=== PATIENT | female | born 1990 | race Caucasian/White ===

== ENCOUNTER → 2016-10-30 | Outpatient (CLI) | payer BC, OTHER ==
[~2016-10-30] MED LIST: /MOM400 PO; ACET50TA PO; ANUS2.5C2 PR; COLA50CA3 PO; IBUP600T26 PO; IBUP80TA PO; No Historical Meds; VITAPRTA PO; ZOLO50TA OR
--- NOTE | 2016-10-31 02:44 | REP ---
Clinical: Acute right knee pain Technique: AP, lateral, bilateral oblique and sunrise views. Findings: The osseous structures and joint spaces are intact and normal. There is no evidence for acute fracture or dislocation. No joint effusion is appreciated. Surrounding soft tissues are unremarkable. No subcutaneous emphysema or radiodense foreign body. Impression: Normal examination. No acute fracture or dislocation. Signed by Waldo Barnes MD 10/31/2016 02:36 A
== END ==
LOC: M CLY 10:24
PROVIDERS: ATTEND Family Medicine
DX: M25.561 Pain in right knee (principal)

== ENCOUNTER → 2017-05-18 | Outpatient (REF) | payer OTHER ==
[2017-05-18 18:16] LABS: FREE T4 1.05 NG/DL (0.76-1.46)
== END ==
LOC: M LABDRAWC 16:19
DX: R94.6 Abnormal results of thyroid function studies (principal)
CPT/HCPCS: 84443

== ENCOUNTER → 2017-06-25 | Outpatient (REF) | payer OTHER | LOC: M SFHCCLAY 10:55 | DX: J03.90 Acute tonsillitis, unspecified (principal) ==

== ENCOUNTER → 2017-08-20 | Outpatient (REF) | payer OTHER | LOC: M LAB REF 17:47 | DX: Z12.4 Encounter for screening for malignant neoplasm of cervix (principal) ==

== ENCOUNTER → 2017-12-05 | Outpatient (CLI) | payer BC, OTHER | LOC: M RAD 15:48 | DX: N93.8 Other specified abnormal uterine and vaginal bleeding (principal) | CPT/HCPCS: 76856 ==

== ENCOUNTER → 2018-02-18 | Outpatient (REF) | payer OTHER ==
[2018-02-18 17:31] LABS: BASO % 0.4 % (0.0-1.0); EOS # 0.1 10^3/uL (0.0-0.50); EOS % 2.1 % (0.0-3.0); HEMATOCRIT 36.1 % (36.0-47.0); HEMOGLOBIN 12.5 g/dl (12.0-15.5); IMMATURE GRANULOCYTE % 0.4 % (0-3.0); LYMPH # 2.1 10^3/uL (1.5-6.5); LYMPH % 41.2 % (24.0-44.0); MEAN CORPUSCULAR HEMOGLOBIN 31.6 pg (27.0-33.0); MEAN CORPUSCULAR HGB CONC 34.6 g/dl (32.0-36.5); MEAN CORPUSCULAR VOLUME 91.4 fl (80.0-96.0); MONO # 0.3 10^3/uL (0.0-0.8); MONO % 5.8 % (0.0-5.0); NEUTROPHILS # 2.6 10^3/uL (1.8-7.7); NEUTROPHILS % 50.1 % (36.0-66.0); PLATELET COUNT, AUTOMATED 282 10^3/uL (150-450); RED BLOOD COUNT 3.95 10^6/uL (4.00-5.40); RED CELL DISTRIBUTION WIDTH 11.2 % (11.5-14.5); WHITE BLOOD COUNT 5.2 10^3/uL (4.0-10.0)
[2018-02-18 17:56] LABS: ALBUMIN/GLOBULIN RATIO 1.54 (1.00-1.93); ALKALINE PHOSPHATASE 50 U/L (45-117); ALT/SGPT 16 U/L (12-78); ANION GAP 7 MEQ/L (8-16); AST/SGOT 12 U/L (7-37); BILIRUBIN,TOTAL 0.4 MG/DL (0.2-1.0); BLOOD UREA NITROGEN 7 MG/DL (7-18); CARBON DIOXIDE LEVEL 27 MEQ/L (21-32); CHLORIDE LEVEL 108 MEQ/L (98-107); CREATININE FOR GFR 0.53 MG/DL (0.55-1.30); FREE T4 0.92 NG/DL (0.76-1.46); GLOMERULAR FILTRATION RATE > 60.0 (>60); GLUCOSE, FASTING 98 MG/DL (70-100); POTASSIUM SERUM 4.3 MEQ/L (3.5-5.1); RHEUMATOID FACTOR QUANT < 10.0 IU/ML (<15.0); SODIUM LEVEL 142 MEQ/L (136-145); THYROID STIMULATING HORMONE 0.335 uIU/ML (0.358-3.740); TOTAL PROTEIN 6.6 GM/DL (6.4-8.2)
[2018-02-18 18:12] LABS: ERYTHROCYTE SEDIMENTATION RATE 13 mm/hr (0-20)
== END ==
LOC: M SFHCCLAY 11:31
DX: M79.10 Myalgia, unspecified site (principal); R53.83 Other fatigue

== ENCOUNTER → 2018-04-05 | Outpatient (REF) | payer OTHER ==
[2018-04-05 16:45] LABS: TOTAL 25(OH) VITAMIN D 28.2 NG/ML (30.0-100.0)
== END ==
LOC: M SFHCCLAY 10:44
DX: F32.9 Major depressive disorder, single episode, unspecified (principal)

== ENCOUNTER → 2019-01-02 | Outpatient (REF) | payer OTHER ==
[~2019-01-02] MED LIST changes: -/MOM400 PO; -ACET50TA PO; +MAPA500T17 PO; +MILK10SU PO; +ZOFR4TAB14 PO
== END ==
LOC: M SFHCCLAY 11:30
PROVIDERS: ATTEND Nurse Practitioner Family
DX: R10.30 Lower abdominal pain, unspecified (principal)

== ENCOUNTER → 2019-01-17 | Outpatient (REF) | payer OTHER ==
[2019-01-18 21:00] LABS: CHLAMYDIA DNA AMPLIFICATION NEGATIVE (NEGATIVE); GC DNA AMPLIFICATION NEGATIVE (NEGATIVE)
== END ==
LOC: M WUC 14:37
PROVIDERS: ATTEND Physician Assistant
DX: R10.30 Lower abdominal pain, unspecified (principal)

== ENCOUNTER → 2019-02-20 | Outpatient (CLI) | payer OTHER ==
[2019-02-20 17:09] LABS: BASO % 0.4 % (0.0-1.0); EOS # 0.1 10^3/uL (0.0-0.5); EOS % 1.3 % (0.0-3.0); HEMATOCRIT 37.3 % (36.0-47.0); HEMOGLOBIN 13.1 g/dl (12.0-15.5); LYMPH # 2.5 10^3/uL (1.5-5.0); MEAN CORPUSCULAR HEMOGLOBIN 33.2 pg (27.0-33.0); MEAN CORPUSCULAR HGB CONC 35.1 g/dl (32.0-36.5); MEAN CORPUSCULAR VOLUME 94.4 fl (80.0-96.0); MONO # 0.4 10^3/uL (0.0-0.8); MONO % 5.6 % (0.0-5.0); NEUTROPHILS # 4.8 10^3/uL (1.5-8.5); NEUTROPHILS % 60.3 % (36.0-66.0); PLATELET COUNT, AUTOMATED 295 10^3/uL (150-450); RED BLOOD COUNT 3.95 10^6/uL (4.00-5.40); WHITE BLOOD COUNT 7.9 10^3/uL (4.0-10.0)
[2019-02-20 18:39] LABS: CHLAMYDIA DNA AMPLIFICATION NEGATIVE (NEGATIVE); GC DNA AMPLIFICATION NEGATIVE (NEGATIVE)
[2019-02-21 11:25] LABS: HEPATITIS C VIRUS ABY INDEX 0.1 INDEX (<0.8); HIV 1&2 SCREEN CENTAUR NEGATIVE (NEGATIVE); RUBELLA IgG QUALITATIVE EQUIVOCAL (IMMUNE)
== END ==
LOC: M SMT 15:05
PROVIDERS: ATTEND Advanced Practice Midwife
DX: O99.211 Obesity complicating pregnancy, first trimester (principal); E66.9 Obesity, unspecified

== ENCOUNTER 2019-04-05 08:24 | Emergency (ER) | payer BC, OTHER ==
[~2019-04-05] VITALS: Ht 167.6 cm; Wt 89.2 kg
[2019-04-05] MEDS ORDERED: NS 1,000 ML IV ONE (09:00)
[2019-04-05] MEDS ORDERED: ACETAMINOPHEN 500 MG TAB PO ONE (09:00)
[2019-04-05 09:15] LABS: HEMATOCRIT 37.3 % (36.0-47.0); MEAN CORPUSCULAR HEMOGLOBIN 32.3 pg (27.0-33.0); MEAN CORPUSCULAR HGB CONC 34.9 g/dl (32.0-36.5); MEAN CORPUSCULAR VOLUME 92.8 fl (80.0-96.0); PLATELET COUNT, AUTOMATED 292 10^3/uL (150-450); RED BLOOD COUNT 4.02 10^6/uL (4.00-5.40); WHITE BLOOD COUNT 13.8 10^3/uL (4.0-10.0)
[2019-04-05 09:28] LABS: APPEARANCE, URINE CLEAR (CLEAR); BACTERIA, URINE AUTO 1+ (NEGATIVE); BILIRUBIN, URINE AUTO NEGATIVE (NEGATIVE); BLOOD, URINE BLOOD NEGATIVE (NEGATIVE); COLOR, URINE YELLOW (YELLOW); GLUCOSE, URINE (UA) AUTO NEGATIVE (NEGATIVE); KETONE, URINE AUTO TRACE mg/dL (NEGATIVE); LEUKOCYTE ESTERASE, URINE AUTO TRACE (NEGATIVE); MUCUS, URINE SMALL (NEGATIVE); NITRITE, URINE AUTO NEGATIVE (NEGATIVE); PROTEIN, URINE AUTO NEGATIVE (NEGATIVE); RBC, URINE AUTO 4 /HPF (0-3); SPECIFIC GRAVITY URINE AUTO 1.023 (1.002-1.035); SQUAMOUS EPITHELIAL CELL UR AU 2 /HPF (0-6); WBC, URINE AUTO 1 /HPF (0-3)
--- NOTE | 2019-04-05 09:50 | REP ---
Urinary tract sonogram: History: The patient bilateral flank pain. Question stone. Comparison: No comparison. Findings: Scanning at the level of the urinary bladder shows no abnormality. Urinary bladder was empty at the time of scanning. Renal cortical echogenicity pattern is normal bilaterally and contours are smooth. There is no evidence of hydronephrosis, cyst, mass, or calculus in either kidney. heart rate is recorded during the scan at 168 beats per minute. The right kidney measures 13.8 x 5.7 x 3.7 cm. Left renal dimensions are 13.9 x 4.3 x 4.6 cm. Impression: Normal urinary tract sonography. Electronically Signed by Luigi Brewer MD 04/05/2019 09:42 A
[2019-04-05 09:56] LABS: HCG, SERUM QUALITATIVE POSITIVE (NEGATIVE)
[2019-04-05 10:02] LABS: BLOOD UREA NITROGEN 6 MG/DL (7-18); CALCIUM LEVEL 8.7 MG/DL (8.5-10.1); CARBON DIOXIDE LEVEL 23 MEQ/L (21-32); CHLORIDE LEVEL 109 MEQ/L (98-107); CREATININE FOR GFR 0.51 MG/DL (0.55-1.30); GLOMERULAR FILTRATION RATE > 60.0 (>60); GLUCOSE, FASTING 109 MG/DL (70-100); POTASSIUM SERUM 3.8 MEQ/L (3.5-5.1); SODIUM LEVEL 139 MEQ/L (136-145)
[2019-04-05 10:47] LABS: HCG, SERUM QUANTITATIVE 81836 MIU/ML
[2019-04-05 12:30] LABS: CHLAMYDIA DNA AMPLIFICATION NEGATIVE (NEGATIVE); GC DNA AMPLIFICATION NEGATIVE (NEGATIVE)
[2019-04-05 13:15] VITALS: BP 102/55
== END 2019-04-05 13:21 | disposition home or self-care (01) ==
LOC: M ED 08:24
DX: O21.9 Vomiting of pregnancy, unspecified (principal); Z3A.12 12 weeks gestation of pregnancy; Z87.59 Personal history of other complications of pregnancy, childbirth and the puerperium; O99.341 Other mental disorders complicating pregnancy, first trimester; Z87.891 Personal history of nicotine dependence

== ENCOUNTER → 2019-04-15 | Outpatient (CLI) | payer BC, OTHER | LOC: M LAB 08:43 | PROVIDERS: ATTEND Advanced Practice Midwife | DX: Z36.89 Encounter for other specified antenatal screening (principal) ==

== ENCOUNTER → 2019-05-28 | Outpatient (CLI) | payer BC, OTHER ==
--- NOTE | 2019-05-29 11:25 | REP ---
Clinical: Anatomical evaluation. Comparison: None . Findings: Examination demonstrates a single live intrauterine in cephalic presentation. motion is identified by technologist. Placenta is noted the posterior/fundal and grade I without evidence for placenta previa or abruption. Amniotic fluid volume is normal. Cervix measures 5.3 cm in length and appears closed. No evidence for nuchal cord. Gestational age by LMP 19 weeks 6 days with DENISSE 10/16/2019 . Gestational age by current measurements 21 weeks 1 day with DENISSE 10/07/2019 . FHR equals 142 beats per minute. BPD 5.0 cm 21 weeks 1 day HC 19.1 cm 21 weeks 2 days AC 16.0 cm 21 weeks 0 days FL 3.5 cm 20 weeks 6 days HL 3.3 cm 21 weeks 2 days HC/AC ratio 1.19 Estimated weight 394 grams ( 42nd percentile). Anatomical assessment demonstrates normal structures including cranium, choroid plexus, cavum, cerebellum/posterior fossa, lungs, four-chamber heart/ventricular outflow tracts, diaphragm, stomach, cord insertion/three-vessel cord, kidneys/bladder, spine, and extremities. Limited evaluation of the facial profile. Echogenic focus in the left cardiac ventricle consistent with prominent chordae tendineae Impression: 1. Single live intrauterine in cephalic presentation demonstrating appropriate interval growth. 2. Anatomical limitations as noted above may warrant followup. Electronically Signed by Waldo Barnes MD 05/29/2019 06:27 A
== END ==
LOC: M RAD 09:40
PROVIDERS: ATTEND Advanced Practice Midwife
DX: Z34.82 Encounter for supervision of other normal pregnancy, second trimester (principal); Z36.89 Encounter for other specified antenatal screening; Z3A.21 21 weeks gestation of pregnancy

== ENCOUNTER → 2019-06-20 | Outpatient (CLI) | payer BC | LOC: M PLALAB 11:22 | PROVIDERS: ATTEND Advanced Practice Midwife | DX: Z13.79 Encounter for other screening for genetic and chromosomal anomalies (principal) ==

== ENCOUNTER 2019-06-25 13:20 | Outpatient (CLI) | payer BC, OTHER ==
[~2019-06-25] VITALS: Ht 167.6 cm; Wt 96.3 kg
[2019-06-25] MEDS ORDERED: PRENTAB9 PO (13:41)
[2019-06-25] MEDS ORDERED: TUMS500C PO (13:42)
[2019-06-25 13:50] VITALS: BP 122/58
--- NOTE | 2019-06-25 14:45 | IPNPDOC ---
Text Note Date of Service The patient was seen on 06/25/19. NOTE Subjective: Patient is a 29-year-old at 23.6 weeks gestation based on first trimester ultrasound with an DENISSE of 10/16/2019. Patient established care in her first trimester. Her has been complicated by anxiety, depression and obesity. She is not taking any medications for her anxiety and depression currently. The patient has also complained of continual pubic bone/tailbone pain and a physical therapy referral has been placed this week. She was sent from [place] [facility] c/o RLQ abdominal pain since 0730 this morning. They reported that she appeared to have cervicitis and was dilated per visual inspection. Pain is currently dull and 5/10 in intensity, but periods of intensity where pain is 9/10 and intermittently stabbing. Denies contractions. Patient denies pain with urination or vomiting. She was treated for nausea prior to arrival to labor and delivery and currently denies this. She reports positive movement. Denies leakage of fluid, but reports white vaginal discharge. Allergies: None Medications: vitamin daily Medical history: Obesity, anxiety, depression, genital warts, left ovarian cyst, tympanic membrane perforation Surgical history: None Family history: Ovarian cancer, uterine cancer, HTN, pancreatic cancer Social history: Patient is a former smoker, denies drug use or alcohol abuse. Objective: VS and labs: see below. Alert and oriented. Cervix visually closed per SSE. Normal discharge noted, cervix is thick, multiparous and does not appear to have cervicitis. Wet prep collected and negative for bacterial vaginosis, some yeast buds noted, whiff test negative with a pH of 4.5. Vaginal culture collected. Abdomen is gravid and soft, RLQ mildly tender to palpation. No CVA tenderness. FHR 150 with 1 contraction noted. Ultrasound ordered for pelvic and renal and the radiologist called with both normal reports as the did not finish writing the reports. There was slight hydronephrosis of the right kidney that was noted, which is normal in . Patient able to keep peanut butter and crackers down without nausea. Assessment: Intrauterine at 23 weeks, RLQ pain, not in labor Plan: Abdominal/renal ultrasound ordered, urinalysis collected, and vaginal culture collected. She was given a dose of Percocet for pain, which she states reduced her pain to a 1/10. Encouraged adequate PO intake. Reviewed danger signs of labor, abruption and premature rupture of membranes. Reviewed kick count. Patient verbalized understanding. VS,Fishbone, I+O VS, Fishbone, I+O Vital Signs Date Time Temp Pulse Resp B/P (MAP) Pulse Ox O2 Delivery O2 Flow Rate FiO2 06/25/19 13:50 98.6 78 16 122/58 (79) Item Value Date Time Urine Color STRAW 06/25/19 1457 Urine Appearance CLEAR 06/25/19 1457 Urine pH 7.0 UNITS 06/25/19 1457 Urine Specific [place] 1.002 06/25/19 1457 Urine Protein NEGATIVE mg/dL 06/25/19 1457 Urine Ketones (Auto) 1+ mg/dL H 06/25/19 1457 Urine Glucose (Auto)(UA) NEGATIVE mg/dL 06/25/19 1457 Urine Blood 1+ H 06/25/19 1457 Urine Nitrite NEGATIVE 06/25/19 1457 Urine Bilirubin NEGATIVE 06/25/19 1457 Urine Urobilinogen 0.2 mg/dL 06/25/19 1457 Urine Leukocyte Esterase (Auto) NEGATIVE 06/25/19 1457 Urine WBC (Auto) 0 /HPF 06/25/19 1457 Urine RBC (Auto) 0 /HPF 06/25/19 1457 Urine Hyaline Casts (Auto) 0 /LPF 06/25/19 1457 Urine Bacteria (Auto) 1+ H 06/25/19 1457 Urine Squamous Epithelial Cells 0 /HPF 06/25/19 1457 MANUEL HANKS CNM Jun 25, 2019 14:45
[2019-06-25 15:15] LABS: APPEARANCE, URINE CLEAR (CLEAR); BACTERIA, URINE AUTO 1+ (NEGATIVE); BILIRUBIN, URINE AUTO NEGATIVE (NEGATIVE); BLOOD, URINE BLOOD 1+ (NEGATIVE); COLOR, URINE STRAW (YELLOW); GLUCOSE, URINE (UA) AUTO NEGATIVE (NEGATIVE); KETONE, URINE AUTO 1+ mg/dL (NEGATIVE); LEUKOCYTE ESTERASE, URINE AUTO NEGATIVE (NEGATIVE); NITRITE, URINE AUTO NEGATIVE (NEGATIVE); PROTEIN, URINE AUTO NEGATIVE (NEGATIVE); RBC, URINE AUTO 0 /HPF (0-3); SPECIFIC GRAVITY URINE AUTO 1.002 (1.002-1.035); SQUAMOUS EPITHELIAL CELL UR AU 0 /HPF (0-6); UROBILINOGEN, URINE AUTO 0.2 mg/dL (0.0-2.0); WBC, URINE AUTO 0 /HPF (0-3)
[2019-06-25] MEDS ORDERED: PERCOCET 5MG/325MG TAB PO ONE (16:00)
[2019-06-25 16:17] VITALS: BP 112/58
--- NOTE | 2019-06-25 22:53 | REP ---
Right lower quadrant sonography: History: Acute right lower quadrant pain. 20 weeks gestation. Findings: Scanning through the right lower quadrant shows peristalsing bowel loops. Normal appearing right ovary is seen measuring 2.1 x 3.2 x 2.5 cm. Doppler flow is present in the right ovary. Resistive index 0.66. No free fluid is seen. The appendix is not directly visualized. No evidence of adenopathy or rebound tenderness with probe pressure. Impression: Appendix not directly visualized. Normal right ovary seen. No other abnormality. Electronically Signed by Luigi Brewer MD 06/26/2019 08:06 A
--- NOTE | 2019-06-25 22:54 | REP ---
RENAL ULTRASOUND: Real-time sonographic evaluation of the kidneys performed. The kidneys are normal in size and echotexture, right kidney measuring 12.2 x 6.5 x 5.4 cm and left kidney 12.4 x 5.3 x 5.4 cm. There is moderate right hydronephrosis. There is no left hydronephrosis. No definite renal stones are seen. Patient is 20 weeks reportedly. The heart rate is 143 beats per minute. Urinary bladder is not well distended. IMPRESSION: Moderate right hydronephrosis. Electronically Signed by Victor Hugo Gardner MD 06/26/2019 11:09 A
== END 2019-06-25 16:50 | disposition home or self-care (01) ==
LOC: M LDO 13:20
PROVIDERS: ATTEND Advanced Practice Midwife
DX: O26.892 Other specified pregnancy related conditions, second trimester (principal); R10.31 Right lower quadrant pain; O99.342 Other mental disorders complicating pregnancy, second trimester; F32.9 Major depressive disorder, single episode, unspecified; F41.9 Anxiety disorder, unspecified; O99.212 Obesity complicating pregnancy, second trimester; E66.9 Obesity, unspecified; Z3A.23 23 weeks gestation of pregnancy; Z87.891 Personal history of nicotine dependence
CPT/HCPCS: 76775; 76857; 81001; 87070; G0378; G0463

== ENCOUNTER → 2019-07-10 | Outpatient (CLI) | payer BC, OTHER ==
[~2019-07-10] MED LIST changes: +PRENTAB9 PO; +TUMS500C PO
--- NOTE | 2019-07-10 11:03 | REP ---
Clinical: Anatomical evaluation. Comparison: 05/28/2019 . Findings: Examination demonstrates a single live intrauterine in cephalic presentation. motion is identified by technologist. Placenta is noted the posterior and grade on the without evidence for placenta previa or abruption. Amniotic fluid volume is normal. Cervix measures 4.4 cm in length and appears closed. No evidence for nuchal cord. Gestational age by first US 27 weeks 2 days with DENISSE 10/07/2019 . Gestational age by current measurements 26 weeks 4 days with DENISSE 10/12/2019 . FHR equals 138 beats per minute. Estimated weight 951 grams ( 24th percentile). Anatomical assessment demonstrates normal structures including cranium, facial features, lungs, four-chamber heart, diaphragm, stomach, cord insertion/three-vessel cord, kidneys/bladder, and spine. Echogenic focus in the left cardiac ventricle is again noted. Impression: 1. Single live intrauterine in cephalic presentation demonstrating appropriate interval growth. 2. In conjunction with prior examination anatomical assessment is essentially complete and relatively normal. The echogenic focus in the left cardiac ventricle is again identified.
== END ==
LOC: M WHC 09:47
PROVIDERS: ATTEND Advanced Practice Midwife
DX: Z34.82 Encounter for supervision of other normal pregnancy, second trimester (principal); Z36.2 Encounter for other antenatal screening follow-up; Z3A.27 27 weeks gestation of pregnancy

== ENCOUNTER → 2019-07-23 | Outpatient (REF) | payer OTHER ==
[2019-07-23 13:50] LABS: HEMATOCRIT 33.1 % (36.0-47.0); HEMOGLOBIN 11.3 g/dl (12.0-15.5); MEAN CORPUSCULAR HEMOGLOBIN 32.8 pg (27.0-33.0); MEAN CORPUSCULAR HGB CONC 34.1 g/dl (32.0-36.5); MEAN CORPUSCULAR VOLUME 95.9 fl (80.0-96.0); PLATELET COUNT, AUTOMATED 322 10^3/uL (150-450); RED BLOOD COUNT 3.45 10^6/uL (4.00-5.40); WHITE BLOOD COUNT 13.5 10^3/uL (4.0-10.0)
== END ==
LOC: M PLALAB 10:04
PROVIDERS: ATTEND Advanced Practice Midwife
DX: Z36.89 Encounter for other specified antenatal screening (principal)

== ENCOUNTER → 2019-07-23 | Outpatient (REF) | payer OTHER | LOC: M LABDRAWC 16:18 | PROVIDERS: ATTEND Advanced Practice Midwife | DX: Z36.89 Encounter for other specified antenatal screening (principal) | CPT/HCPCS: 36415; 86850; 86901; J2790 ==

== ENCOUNTER → 2019-09-17 | Outpatient (REF) | payer OTHER | LOC: M PLALAB 12:08 | PROVIDERS: ATTEND Advanced Practice Midwife | DX: O99.333 Smoking (tobacco) complicating pregnancy, third trimester (principal) ==

== ENCOUNTER 2019-09-23 05:29 | Inpatient (IN) | payer BC, OTHER ==
[~2019-09-23] VITALS: Ht 167.6 cm; Wt 104.5 kg
[2019-09-23] VITALS (8 sets, daily range): BP systolic 109–125; BP diastolic 65–76
[2019-09-23] MEDS ORDERED: PENICILLIN G POTASSIUM IV 5 MU in D5W MINI-BAG PLUS 100 ML IV STA ×2 (06:08→06:34)
[2019-09-23] MEDS ORDERED: LR 1,000 ML IV SCH (06:08)
[2019-09-23] MEDS ORDERED: LACTATED RINGER'S 1000 ML IV STA (06:08)
[2019-09-23] MEDS ORDERED: BETAMETHASONE SOLUSPAN 6MG/ML 5ML VIAL (J0702 PER 3MG) IM SCH (06:15)
--- NOTE | 2019-09-23 06:18 | HPEPDOC ---
Obstetrical History & Physical General Date of Admission 09/23/19 Primary Care Physician: MANUEL HANKS CNM History of Present Illness Patient is a 29-year-old female who is a with an DENISSE of 10/16/19 based off of her first trimester ultrasound. She initiated care in her first trimester with [facility]. Her has been complicated by obesity and anxiety and depression. She presents to L&D after she reports she spontaneously ruptured to a large amount of clear fluid at 0430. She denies leaking of fluid or vaginal bleeding. She reports painful contractions. Chief Complaint: Active Labor, Rupture of membranes Information Provided By: Patient Age: 29 : 4 Term: 2 Pre-term: 0 Abortions: 1 Livin Care Care: Good Care Dating Final EDC: October 16, 2019 Final EDC by: 1st trimester (US) EGA at Admission: 36.5 Antepartum Course Diagnos(e)s PROM and active labor Height (inches): 66 Pre- weight (lbs.): 198 Admission Weight (lbs.): 227 Change in Weight (lbs.): 19 Past Medical History Past Obstetrical History #1: Past Obstetrical History: Primgravida Gestation: 40 Type of Delivery: Spontaneous Vaginal Del. (06/2013) Sex of Infant: Male (9 lbs 11 oz) Complications: No Past Obstetrical History #2: Past Obstetrical History: Multigravida Gestation: 40 Type of Delivery: Spontaneous Vaginal Del. (02/2015) Sex of : Female (80lbs 10 oz.) Complications: No CAN WORKER History: Spontaneous (11/2010), Human papillomavirus(HPV) Past Medical History Medical History obesity Surgical History: [place] teeth, Other (cystectomy left ovarian cyst.) Family History Significant Family History: Cancer, Hypertension Social History Marital Status: Family situation: Spouse/partner home Psychosocial History: Anxiety, Depression * Smoker: current smoker Alcohol: Denies Drugs: denies Abuse Violence Screening Have you been hit/kicked/slapp: No Have you been sexually assault: No Imunizations Tdap status: current Allergies Coded Allergies: No Known Allergies (Unverified , 04/05/19) Medications Scheduled No.137/Iron/Folic Acd ( Vitamin Tablet) 1 Each Tablet, 2 TAB PO DAILY Scheduled PRN Calcium Carbonate (Tums) 200 Mg Tab.chew, 2 TAB PO QID PRN for ABDOMINAL PAIN Physical Examination Physical Examination GENERAL: Alert and oriented times three. BREAST: . ABDOMEN: Gravid and non-tender to touch. FETUS: Is vertex (VTX) by sterile vaginal examination (SVE), fetus is vertex (VTX) by Reji. PERINEUM: SSE: moderate amount of clear fluid noted in the vaginal canal. + nitrazine. HEART RATE: Regular rate and rhythm. LUNGS: Clear to auscultation (CTA). EXTREMITIES: No edema. No clonus. Deep tendon reflexes (DTRs) + 2. Laboratory Data Urine Culture: No Growth Pertinent Laboratoy Data Blood Type: O- HIV: Negative Hepatitis B: Negative Hepatitis C: Negative Rapid Plasma Reagin: Nonreactive Rubella: Nonreactive Chlamydia/Gonorrhea: Negative Group B Streptococcus: Positive Glucose Tolerance Test: 96 Steroid Therapy Steroid Therapy: Yes Date #1: September 23, 2019 Vaginal Examination Dilation: 4 cm (4-5 cm) Effacement: 90% Station: -2 Cervical Consistency: Soft Cervical Position: Anterior Presentation: Cephalic presentation Position: Vertex (occiput) Assessment Heart Rate (FHR): 160 Variability: Moderate Accelerations: Positive Decelerations: None Tocometer Contractions: Yes Frequency: regular, every 1-3 min. Multi-drug resistant Organism: No history of MDRO Assessment/Plan Assessment IUP at 36.5 weeks gestation PROM active labor GBS positive Category I FHR tracing. Plan Admit to L&D. OOB ad cortney. Diet:clears. Group B Streptococcus (GBS) positive. Start antibiotic prophylaxis. Labs and intravenous (IV) per unit protocol. Anesthesia consult per patient request. Lactated Ringers (LR): Bolus 800 mL, then at 125 mL/hr. Betamethasone IM injection ordered due to labor status. Anticipate cervical change and spontaneous vaginal delivery. C-S as appropriate. MANUEL HANKS CNM September 23, 2019 06:18
[2019-09-23 06:40] LABS: HEMATOCRIT 33.4 % (36.0-47.0); HEMOGLOBIN 11.3 g/dl (12.0-15.5); MEAN CORPUSCULAR HGB CONC 33.8 g/dl (32.0-36.5); MEAN CORPUSCULAR VOLUME 91.8 fl (80.0-96.0); PLATELET COUNT, AUTOMATED 273 10^3/uL (150-450); RED BLOOD COUNT 3.64 10^6/uL (4.00-5.40); WHITE BLOOD COUNT 9.5 10^3/uL (4.0-10.0)
[2019-09-23] MEDS ORDERED: FENTANYL 2MCG/ML ROPIVACAINE 0.2% IN 0.9% NACL 100ML IVBAG As Ordered ONE (06:59)
[2019-09-23] MEDS ORDERED: OXYTOCIN 30 UNITS IN 0.9% NaCl 500ML IV BAG (J2590) As Ordered ONE (07:10)
[2019-09-23] MEDS ORDERED: OXYTOCIN DRIP 30 UNITS in IV 1 EA IV SCH (07:42)
[2019-09-23] MEDS ORDERED: IBUPROFEN 800 MG TAB PO PRN (07:45)
[2019-09-23] MEDS ORDERED: DIBUCAINE 1% OINTMENT 30GM TOP PRN (07:45)
[2019-09-23] MEDS ORDERED: IBUPROFEN 600 MG TAB PO PRN (07:45)
[2019-09-23] MEDS ORDERED: RHOGAM 300 MCG (1500 IU) INJ (J2790) IM SCH (07:45)
[2019-09-23] MEDS ORDERED: ACETAMINOPHEN TAB 650MG DOSE (2X325MG) PO PRN (07:45)
[2019-09-23] MEDS ORDERED: DOCUSATE SODIUM 100 MG CAP PO PRN (07:45)
[2019-09-23] MEDS ORDERED: METHYLERGONOVINE MALEATE 0.2 MG TAB PO PRN (07:45)
[2019-09-23] MEDS ORDERED: MEASLES,MUMPS,RUBELLA VACCINE INJ (MMR-II) (90707) SC SCH (07:45)
--- NOTE | 2019-09-23 08:11 | DNPDOC ---
[facility] Delivery Note Delivery Note DATE OF DELIVERY: 09/23/19 at 0719 PREDELIVERY DIAGNOSIS: 36-5/7 weeks' gestation and labor. POST DELIVERY DIAGNOSIS: Delivered. PROCEDURE: Spontaneous vaginal delivery. IMAGING NURSE: Manuel Pro CNM, MYRIAM ANESTHESIA: none. ESTIMATED BLOOD LOSS: 250 mL. FINDINGS: 8 pounds 1 ounce; 3670 grams; female , Score 9/9, PROM with delivery, precipitous delivery. DELIVERY SUMMARY: Patient is a 29-year-old female who is now a who presented to L&D after she spontaneously ruptured at home at 0430 to a large amount of clear fluid. She progressed to fully dilated at 0717 and pushed to a living female in the APRIL position with restitution to ROT. The anterior shoulder delivered with ease and the corpus immediately followed at 0719. The baby was placed on the maternal abdomen active and crying. The cord was clamped x2 after it stopped pulsating and was cut by the FOB. A 3-vessel cord was noted. The placenta delivered spontaneously and intact at 0724. Uterine hemostasis was achieved via rapid infusion of IV Pitocin and fundal massage. The vagina, cervix, and perineum was inspected and found to be intact. Both mom and baby are in stable condition. She plans to breastfeed. They are naming her Jeanie. All counts of instruments and sponges are correct. MANUEL PRO CNM September 23, 2019 08:11
[2019-09-23] MEDS ORDERED: **PENDING PCN ENTRY XX SCH (09:00)
[2019-09-23] MEDS: PRENATAL VITAMINS CHEWABLE TABLET PO SCH (09:00)
[2019-09-23] MEDS ORDERED: PENICILLIN G POTASSIUM IV 2.5 MU in IV 1 EA IV SCH ×2 (10:15→10:30)
[2019-09-23] MEDS: ACETAMINOPHEN 500 MG TAB PO PRN (12:10)
[2019-09-24] MEDS: ACETAMINOPHEN 500 MG TAB PO PRN (04:04)
[2019-09-24 06:00] VITALS: BP 107/60
[2019-09-24] MEDS ORDERED: ACET-683 PO (09:31)
[2019-09-24] MEDS: PRENATAL VITAMINS CHEWABLE TABLET PO SCH (11:04)
[2019-09-24] MEDS ORDERED: FLUoxetine 10 MG CAP PO SCH (16:00)
== END 2019-09-24 17:41 | disposition home or self-care (01) | DRG 560 ==
LOC: M LDO 05:29 → M LDI 06:11 → M OBS 10:13
PROVIDERS: ADMIT Advanced Practice Midwife; ATTEND Advanced Practice Midwife
PROC: 10E0XZZ Delivery of Products of Conception, External Approach (ICD-10-PCS; principal; 2019-09-23)
DX: O60.14X0 Preterm labor third trimester with preterm delivery third trimester, not applicable or unspecified (principal); E66.9 Obesity, unspecified; F32.9 Major depressive disorder, single episode, unspecified; O99.344 Other mental disorders complicating childbirth; Z3A.36 36 weeks gestation of pregnancy; F41.9 Anxiety disorder, unspecified; Z37.0 Single live birth; O62.3 Precipitate labor; O99.214 Obesity complicating childbirth

== ENCOUNTER → 2019-12-07 | Outpatient (CLI) | payer BC, OTHER ==
[~2019-12-07] MED LIST changes: +ACET-683 PO; +ESCI20TA PO
== END ==
LOC: M LABSMTC 09:39
PROVIDERS: ATTEND Anesthesiology
DX: Z01.818 Encounter for other preprocedural examination (principal); Z11.59 Encounter for screening for other viral diseases; Z20.828 Contact with and (suspected) exposure to other viral communicable diseases
CPT/HCPCS: C9803; U0003

== ENCOUNTER → 2020-03-04 | Outpatient (REF) | payer OTHER ==
[2020-03-04 17:50] LABS: HEMATOCRIT 40.2 % (36.0-47.0); HEMOGLOBIN 13.5 g/dl (12.0-15.5); MEAN CORPUSCULAR HEMOGLOBIN 30.8 pg (27.0-33.0); MEAN CORPUSCULAR HGB CONC 33.6 g/dl (32.0-36.5); MEAN CORPUSCULAR VOLUME 91.6 fl (80.0-96.0); PLATELET COUNT, AUTOMATED 362 10^3/uL (150-450); RED BLOOD COUNT 4.39 10^6/uL (4.00-5.40); WHITE BLOOD COUNT 7.9 10^3/uL (4.0-10.0)
[2020-03-04 18:26] LABS: FREE T4 0.8 NG/DL (0.76-1.46); THYROID STIMULATING HORMONE 0.547 uIU/ML (0.358-3.740)
[2020-03-04 18:28] LABS: FOLATE 22.7 NG/ML (>5.4)
== END ==
LOC: M PLALAB 15:34
PROVIDERS: ATTEND Advanced Practice Midwife
DX: F41.8 Other specified anxiety disorders (principal); L65.9 Nonscarring hair loss, unspecified

== ENCOUNTER → 2020-08-24 | Outpatient (CLI) | payer BC, OTHER ==
[~2020-08-24] MED LIST changes: +E-Z-GAS II EFFERVESCENT PACKET (SODIUM BICARB./CITRIC ACID/SIMETHICONE) As Ordered ONE; +E-Z-HD 98% w/w 340GM SUSP BTL As Ordered ONE; +E-Z-PAQUE 96% w/w SUSP 176GM BTL As Ordered ONE; -ESCI20TA PO; +ESCI20TA16 PO
--- NOTE | 2020-08-24 18:44 | REP ---
INDICATION: DYSPHAGIA. COMPARISON: None. TECHNIQUE: This procedure was performed under the direct supervision of Dr. Gardner. Images were reviewed with Dr. Gardner. Liquid barium and gas producing granules were given in the erect position as well as liquid barium in the prone oblique positions in order to perform a double contrast esophagram examination. 0.7 minutes of fluoro time was utilized for this procedure. FINDINGS: A single view PA chest x-ray is submitted as a electrodynamicist film. The superior mediastinal structures are midline. The heart size is within normal limits. The lungs are clear. The oral and pharyngeal stages of deglutition are unremarkable. Esophageal transport is prompt and efficient and there is no esophagitis, stricture or mucosal ring. There is a sliding-type hiatal hernia.There is gastroesophageal reflux demonstrated to above the level of the ninfa. IMPRESSION: There is a sliding-type hiatal hernia. There is gastroesophageal reflux demonstrated to above the level of the ninfa. <Electronically signed by Darion Azar > 08/24/20 1518 <Electronically signed by Victor Hugo Gardner > 08/24/20 184
== END ==
LOC: M RAD 08:11
PROVIDERS: ATTEND Specialist
DX: R13.14 Dysphagia, pharyngoesophageal phase (principal); K44.9 Diaphragmatic hernia without obstruction or gangrene; K21.9 Gastro-esophageal reflux disease without esophagitis

== ENCOUNTER → 2021-01-24 | Outpatient (CLI) | payer BC, OTHER ==
[~2021-01-24] MED LIST changes: -E-Z-GAS II EFFERVESCENT PACKET (SODIUM BICARB./CITRIC ACID/SIMETHICONE) As Ordered ONE; -E-Z-HD 98% w/w 340GM SUSP BTL As Ordered ONE; -E-Z-PAQUE 96% w/w SUSP 176GM BTL As Ordered ONE
--- NOTE | 2021-01-25 09:20 | REP ---
INDICATION: PAIN. COMPARISON: None. TECHNIQUE: Five views of the left knee. FINDINGS: Five views of the left knee demonstrate normal bones, joints, and soft tissues. No fracture or subluxation is seen. No opaque foreign body noted. IMPRESSION: Negative left knee series. <Electronically signed by Avelino Brewer > 01/25/21 0978
== END ==
LOC: M WUC 11:36
PROVIDERS: ATTEND Physician Assistant
DX: M25.562 Pain in left knee (principal)

== ENCOUNTER → 2022-09-19 | Outpatient (REF) | payer OTHER ==
[2022-09-19 18:04] LABS: ALBUMIN 3.8 G/DL (3.2-5.2); ALKALINE PHOSPHATASE 65 U/L (46-116); ALT/SGPT 17 U/L (7.0-40); AST/SGOT 10 U/L (<34); BILIRUBIN,TOTAL 0.4 MG/DL (0.3-1.2); BLOOD UREA NITROGEN 9 MG/DL (9-23); CALCIUM LEVEL 9.2 MG/DL (8.5-10.1); CARBON DIOXIDE LEVEL 25 MMOL/L (20-31); CHLORIDE LEVEL 108 MMOL/L (98-107); CREATININE FOR GFR 0.61 MG/DL (0.55-1.30); GLOMERULAR FILTRATION RATE > 60.0 (>60); GLUCOSE, FASTING 90 MG/DL (60-100); POTASSIUM SERUM 3.9 MMOL/L (3.5-5.1); RHEUMATOID FACTOR QUANT 4.6 IU/ML (<14); SODIUM LEVEL 141 MMOL/L (136-145); TOTAL PROTEIN 6.9 G/DL (5.7-8.2)
[2022-09-19 18:05] LABS: FREE T4 0.96 NG/DL (0.89-1.76); THYROID STIMULATING HORMONE 0.329 uIU/ML (0.55-4.78)
[2022-09-19 18:08] LABS: BASO % 0.8 % (0.0-1.0); EOS # 0.1 10^3/uL (0.0-0.5); EOS % 2.5 % (0.0-3.0); HEMOGLOBIN 12.8 g/dl (12.0-15.5); LYMPH # 1.5 10^3/uL (1.5-5.0); LYMPH % 30.8 % (24.0-44.0); MEAN CORPUSCULAR HEMOGLOBIN 30.5 pg (27.0-33.0); MEAN CORPUSCULAR HGB CONC 33.7 g/dl (32.0-36.5); MEAN CORPUSCULAR VOLUME 90.5 fl (80.0-96.0); MONO # 0.5 10^3/uL (0.0-0.8); MONO % 9.6 % (2.0-8.0); NEUTROPHILS # 2.7 10^3/uL (1.5-8.5); NEUTROPHILS % 56.1 % (36.0-66.0); PLATELET COUNT, AUTOMATED 347 10^3/uL (150-450); WHITE BLOOD COUNT 4.8 10^3/uL (4.0-10.0)
[2022-09-19 19:38] LABS: ERYTHROCYTE SEDIMENTATION RATE 19 mm/hr (0-20)
== END ==
LOC: M SFHCCLAY 14:20
PROVIDERS: ATTEND Nurse Practitioner Family
DX: R53.83 Other fatigue (principal); M25.50 Pain in unspecified joint

== ENCOUNTER → 2022-11-10 | Outpatient (CLI) | payer BC | LOC: M CLY 11:20 | PROVIDERS: ATTEND Nurse Practitioner Family | DX: R06.02 Shortness of breath (principal) ==

== ENCOUNTER → 2023-01-16 | Outpatient (REF) | payer BC, OTHER | LOC: M SFHCCLAY 15:14 | PROVIDERS: ATTEND Physician Assistant Medical | DX: R10.2 Pelvic and perineal pain (principal) ==

== ENCOUNTER → 2023-01-31 | Outpatient (REF) | payer BC, OTHER ==
[2023-01-31 12:36] LABS: APPEARANCE, URINE CLEAR (CLEAR); BACTERIA, URINE AUTO NEGATIVE (NEGATIVE); BILIRUBIN, URINE AUTO NEGATIVE (NEGATIVE); BLOOD, URINE BLOOD NEGATIVE (NEGATIVE); COLOR, URINE STRAW (YELLOW); GLUCOSE, URINE (UA) AUTO NEGATIVE (NEGATIVE); KETONE, URINE AUTO NEGATIVE (NEGATIVE); LEUKOCYTE ESTERASE, URINE AUTO 2+ (NEGATIVE); NITRITE, URINE AUTO NEGATIVE (NEGATIVE); PROTEIN, URINE AUTO NEGATIVE (NEGATIVE); RBC, URINE AUTO 0 /HPF (0-3); SPECIFIC GRAVITY URINE AUTO 1.003 (1.002-1.035); SQUAMOUS EPITHELIAL CELL UR AU 1 /HPF (0-6); UROBILINOGEN, URINE AUTO 0.2 mg/dL (0.0-2.0); WBC, URINE AUTO 1 /HPF (0-3)
[2023-01-31 13:02] LABS: BASO % 0.8 % (0.0-1.0); EOS # 0.3 10^3/uL (0.0-0.5); EOS % 6.4 % (0.0-3.0); HEMATOCRIT 38.8 % (36.0-47.0); HEMOGLOBIN 12.9 g/dl (12.0-15.5); LYMPH # 1.3 10^3/uL (1.5-5.0); LYMPH % 25.4 % (24.0-44.0); MEAN CORPUSCULAR HEMOGLOBIN 30.6 pg (27.0-33.0); MEAN CORPUSCULAR HGB CONC 33.2 g/dl (32.0-36.5); MEAN CORPUSCULAR VOLUME 92.2 fl (80.0-96.0); MONO # 0.4 10^3/uL (0.0-0.8); NEUTROPHILS # 3.1 10^3/uL (1.5-8.5); PLATELET COUNT, AUTOMATED 367 10^3/uL (150-450); RED BLOOD COUNT 4.21 10^6/uL (4.00-5.40); WHITE BLOOD COUNT 5.2 10^3/uL (4.0-10.0)
[2023-01-31 13:24] LABS: CREATININE,RANDOM URINE 26.8 MG/DL
[2023-01-31 13:27] LABS: ALBUMIN 3.9 G/DL (3.2-5.2); ALKALINE PHOSPHATASE 56 U/L (46-116); ALT/SGPT 13 U/L (7.0-40); AST/SGOT < 8 U/L (<34); BILIRUBIN,TOTAL 0.5 MG/DL (0.3-1.2); BLOOD UREA NITROGEN 10 MG/DL (9-23); CALCIUM LEVEL 8.9 MG/DL (8.5-10.1); CARBON DIOXIDE LEVEL 27 MMOL/L (20-31); CHLORIDE LEVEL 108 MMOL/L (98-107); CPK CREATINE PHOSPHOKINASE 76 U/L (34-145); CREATININE FOR GFR 0.61 MG/DL (0.55-1.30); GLOMERULAR FILTRATION RATE > 60.0 (>60); GLUCOSE, FASTING 85 MG/DL (60-100); LDH LACTATE DEHYDROGENASE 144 U/L (120-246); POTASSIUM SERUM 4.2 MMOL/L (3.5-5.1); SODIUM LEVEL 143 MMOL/L (136-145); TOTAL PROTEIN 6.5 G/DL (5.7-8.2); TOTAL PROTEIN,RANDOM URINE < 6.0 MG/DL (0.0-14.0)
[2023-01-31 13:41] LABS: ERYTHROCYTE SEDIMENTATION RATE 7 mm/hr (0-20)
[2023-02-01 09:10] LABS: C REACTIVE PROTEIN QUANTITATIV < 0.40 MG/DL (<1.0)
[2023-02-03 19:02] LABS: COMPLEMENT C3 132.1 MG/DL (84.0-160.0)
== END ==
LOC: M SFHCRHEU 09:18
PROVIDERS: ATTEND Internal Medicine Rheumatology
DX: R76.8 Other specified abnormal immunological findings in serum (principal); M35.3 Polymyalgia rheumatica; R21 Rash and other nonspecific skin eruption; H04.123 Dry eye syndrome of bilateral lacrimal glands; R53.83 Other fatigue

== ENCOUNTER → 2023-03-07 | Outpatient (REF) | payer BC, OTHER | LOC: M SFHCCLAY 09:21 | PROVIDERS: ATTEND Nurse Practitioner Family | DX: Z12.4 Encounter for screening for malignant neoplasm of cervix (principal) | CPT/HCPCS: 87070; 87624; G0123 ==

== ENCOUNTER → 2023-04-23 | Outpatient (REF) | payer BC, OTHER ==
[2023-04-23 17:52] LABS: BASO % 0.6 % (0.0-1.0); EOS # 0.3 10^3/uL (0.0-0.5); EOS % 4.5 % (0.0-3.0); HEMATOCRIT 37.4 % (36.0-47.0); HEMOGLOBIN 12.7 g/dl (12.0-15.5); LYMPH # 1.6 10^3/uL (1.5-5.0); MEAN CORPUSCULAR HEMOGLOBIN 31.4 pg (27.0-33.0); MEAN CORPUSCULAR VOLUME 92.6 fl (80.0-96.0); MONO # 0.3 10^3/uL (0.0-0.8); MONO % 4.6 % (2.0-8.0); NEUTROPHILS # 4.6 10^3/uL (1.5-8.5); PLATELET COUNT, AUTOMATED 337 10^3/uL (150-450); RED BLOOD COUNT 4.04 10^6/uL (4.00-5.40); WHITE BLOOD COUNT 6.9 10^3/uL (4.0-10.0)
[2023-04-23 18:29] LABS: THYROID STIMULATING HORMONE 0.554 uIU/ML (0.55-4.78)
[2023-04-23 18:30] LABS: LIPASE 25 U/L (12-53)
[2023-04-23 18:32] LABS: ALBUMIN 3.7 G/DL (3.2-5.2); ALKALINE PHOSPHATASE 58 U/L (46-116); ALT/SGPT 12 U/L (7.0-40); AST/SGOT 10 U/L (<34); BILIRUBIN,TOTAL 0.5 MG/DL (0.3-1.2); BLOOD UREA NITROGEN 9 MG/DL (9-23); CARBON DIOXIDE LEVEL 25 MMOL/L (20-31); CHLORIDE LEVEL 107 MMOL/L (98-107); CREATININE FOR GFR 0.54 MG/DL (0.55-1.30); FREE T4 0.96 NG/DL (0.89-1.76); GLOMERULAR FILTRATION RATE > 60.0 (>60); GLUCOSE, FASTING 104 MG/DL (60-100); POTASSIUM SERUM 4.1 MMOL/L (3.5-5.1); SODIUM LEVEL 142 MMOL/L (136-145); TOTAL PROTEIN 6.5 G/DL (5.7-8.2)
[2023-04-23 18:34] LABS: TOTAL T3 126.4 NG/DL (60.0-181.0)
== END ==
LOC: M SFHCCLAY 11:31
PROVIDERS: ATTEND Nurse Practitioner Family
DX: Z01.84 Encounter for antibody response examination (principal); R79.89 Other specified abnormal findings of blood chemistry; R76.8 Other specified abnormal immunological findings in serum; R10.30 Lower abdominal pain, unspecified

== ENCOUNTER → 2023-04-23 | Outpatient (CLI) | payer BC, OTHER | LOC: M CLY 11:39 | PROVIDERS: ATTEND Internal Medicine Rheumatology | DX: R76.8 Other specified abnormal immunological findings in serum (principal); M35.3 Polymyalgia rheumatica; R21 Rash and other nonspecific skin eruption; H04.123 Dry eye syndrome of bilateral lacrimal glands; R53.83 Other fatigue; M77.32 Calcaneal spur, left foot ==

== ENCOUNTER → 2023-05-09 | Outpatient (REF) | payer BC, OTHER | LOC: M SFHCCLAY 11:56 | PROVIDERS: ATTEND Nurse Practitioner Family | DX: R10.9 Unspecified abdominal pain (principal) ==

== ENCOUNTER → 2024-03-06 | Outpatient (REF) | payer BC | LOC: M SFHCWAGY 14:46 | PROVIDERS: ATTEND Nurse Practitioner Family | DX: Z11.3 Encounter for screening for infections with a predominantly sexual mode of transmission (principal); N89.8 Other specified noninflammatory disorders of vagina; R10.2 Pelvic and perineal pain ==

== ENCOUNTER → 2024-04-02 | Outpatient (REF) | payer BC ==
[2024-04-04 17:01] LABS: HPV APTIMA Not Detected (Not Detected)
== END ==
LOC: M SFHCWAGY 14:10
PROVIDERS: ATTEND Nurse Practitioner Family
DX: Z12.4 Encounter for screening for malignant neoplasm of cervix (principal)
CPT/HCPCS: 87624; G0123

== ENCOUNTER → 2024-04-22 | Outpatient (CLI) | payer BC | LOC: M WHC 09:56 | PROVIDERS: ATTEND Nurse Practitioner Family | DX: R10.2 Pelvic and perineal pain (principal); F52.6 Dyspareunia not due to a substance or known physiological condition; R93.89 Abnormal findings on diagnostic imaging of other specified body structures ==